=== PATIENT | female | born 1955 | race Caucasian/White ===

== ENCOUNTER 2017-01-14 17:19 | Emergency (ER) | payer OTHER | END 2017-01-14 19:03 | disposition home or self-care (01) | LOC: FER 17:19 | DX: S70.02XA Contusion of left hip, initial encounter (principal); S40.012A Contusion of left shoulder, initial encounter; S90.31XA Contusion of right foot, initial encounter; I10 Essential (primary) hypertension; K21.9 Gastro-esophageal reflux disease without esophagitis; Z79.82 Long term (current) use of aspirin; Z79.899 Other long term (current) drug therapy; W10.9XXA Fall (on) (from) unspecified stairs and steps, initial encounter; Y92.009 Unspecified place in unspecified non-institutional (private) residence as the place of occurrence of the external cause | CPT/HCPCS: 72170; 73030; 73502; 73630; 99284 ==

== ENCOUNTER 2021-07-10 09:53 | Emergency (ER) | payer OTHER ==
[~2021-07-10 09:53] MED LIST: ASPIRIN325 MG PO; BUMEX1 MG PO; COREG12.5 MG PO; DARZALEX; ELIQUIS5 MG PO; FLORANEX TABLE1 EACH PO; FOLIC ACID1 MG PO; K-DUR20 MEQ PO; LEVAQUIN750 MG PO; MAG-OXIDE 400M400 MG PO; MUCINEX 600MG600 MG PO; NORVASC5 MG PO; PERCOCET 5-3251 EACH PO; PREDNISONE 10MG10 MG PO; PROTONIX 40MG T40 MG PO; ULTRAM50 MG PO; VITAMIN D1000 UNI1 PO; ZOVIRAX800 MG PO
[2021-07-10 11:15] LABS: BASOPHIL 0.1 % (0-2); EOSINOPHIL 0 % (0-7); HCT 43.2 % (37.0-47.0); HGB 14.5 g/dl (12.5-16.0); LYMPHOCYTE 4.5 % (15-48); MCH 32.7 pg (25.0-31.0); MCHC 33.6 g/dL (32.0-36.0); MCV 97.3 fL (78.0-100.0); MPV 9.5 fL (6.0-9.5); NRBC 0; PLT 207 K/uL (150-400); RBC 4.44 M/uL (4.20-5.40); WBC 14.2 K/uL (4.0-10.5)
[2021-07-10 11:19] LABS: BUN/CREAT RATIO (CALC) 20.7 RATIO; CREATININE 0.58 mg/dL (0.51-0.95); GLOBULIN (CALCULATION) 4.2 g/dL; POTASSIUM 3.9 mmol/L (3.5-5.1); TOTAL PROTEIN 7.2 g/dL (6.4-8.2)
[2021-07-10] MEDS ORDERED: PREDNISONE 20MG20 MG PO (12:59)
== END 2021-07-10 13:30 | disposition home or self-care (01) ==
LOC: FER 09:53
PROVIDERS: Emergency Medicine
DX: M25.561 Pain in right knee (principal); Z20.822 Contact with and (suspected) exposure to COVID-19
CPT/HCPCS: 36415; 80053; 85025; 86038; 86140; 86431; 99283; J7512; U0002

== ENCOUNTER 2021-07-21 14:56 | Emergency (ER) | payer OTHER ==
[~2021-07-21 14:56] MED LIST changes: +PREDNISONE 20MG20 MG PO
[2021-07-21] MEDS ORDERED: ONDANSETRON ODT4 MG SL (19:42)
[2021-07-21] MEDS ORDERED: NORCO 5-325 TA1 EACH PO (19:42)
[2021-07-21] MEDS ORDERED: PREDNISONE 10MG10 MG PO (19:42)
== END 2021-07-21 20:13 | disposition home or self-care (01) ==
LOC: FER 14:56
DX: M35.3 Polymyalgia rheumatica (principal); I48.91 Unspecified atrial fibrillation; I10 Essential (primary) hypertension; Z94.84 Stem cells transplant status; Z85.79 Personal history of other malignant neoplasms of lymphoid, hematopoietic and related tissues
CPT/HCPCS: 99283; J7512